=== PATIENT | female | born 1965 | race Caucasian/White ===

== ENCOUNTER → 2020-10-21 | Day surgery (SDC) | payer OTHER ==
[~2020-10-21] VITALS: Ht 157.5 cm; Wt 122.9 kg
[~2020-10-21] MED LIST: LISINOPRIL-HCT1 EAC1 PO; LORAZEPAM 0.50.5 MG PO; MELOXICAM15 MG PO
--- NOTE | ~2020-10-21 | O ---
[facility] [place] [address] OPERATIVE REPORT Name: GARETH KEITH Room #: REG [facility] Caren.#: [id number] Admission: 10/21/20 Attend Phys: Corky Segal Discharge: Date of : 67 Report #: [id number] THIS REPORT FOR: cc: Sergio Vasquez Robin L. FNP VanDenBerghe, Gregory R. MD ~ DOC #: [id number] Corky Carlos MD DATE OF SERVICE: 10/21/2020 PREOPERATIVE DIAGNOSES: Right shoulder pain, rotator cuff tear, long head biceps tendon tear, impingement syndrome. POSTOPERATIVE DIAGNOSES: Right shoulder rotator cuff tear, large; long head of the biceps tendon tear and subluxation; glenohumeral joint chondromalacia; subacromial bursitis; intraarticular synovitis. PROCEDURES PERFORMED: Right shoulder arthroscopy, rotator cuff repair, extensive debridement, biceps tenotomy. SURGEON: Corky Carlos MD QA SOFTWARE TESTER: Fe Odom PA-C ANESTHESIA: General with preoperative ultrasound-guided interscalene block. FLUIDS: 700 mL crystalloid. ESTIMATED BLOOD LOSS: 5 mL. DESCRIPTION OF PROCEDURE: After proper identification of the patient and the operative site in preoperative holding area, the operative site was signed by myself. Prophylactic antibiotics given. The patient elected to proceed with a block after discussing risks, benefits, alternatives and complications of anesthesia. After a satisfactory block, the patient was brought back to the operative suite. After induction of satisfactory general anesthesia, the patient was carefully positioned in the left lateral decubitus position. Hawthorne bag and axillary roll were utilized to support the torso. The right shoulder was sterilely prepped and draped in the usual manner and placed within 10 pounds of balanced arthroscopic suspension. Posterior portal was established, joint was inflated with an arthroscopic pump set at 40 mmHg. An anterior superior portal was created using a spinal needle for localization. Examination of the glenohumeral joint revealed extensive fraying and high-grade partial thickness tearing of the long head of the biceps tendon. Tendon grasping stitch was applied and that was released off the superior labrum. The overall tendon quality was quite poor and this would not hold a whipstitch in any significant [address] [address] OPERATIVE REPORT Name: GARETH KEITH Room #: REG [facility] M.Danielle.#: [id number] Admission: 10/21/20 Attend Phys: Corky Segal Discharge: Date of : 67 Report #: [id number] degree, making an attempted biceps tenodesis unpredictable and at a high rate of failure with her overall morbid obesity and body habitus. It was elected to treat this with a biceps tenotomy. This should not be a visible lesion and due to the underlying poor tendon quality, it was difficult to predict that this would even hold. The patient had some mild chondral thinning of the inferior humeral head and glenoid. Complex labral fraying and tearing was noted of the posterior labrum, which was carefully debrided. The remaining superior labrum demonstrated fraying as well and this was carefully debrided after the biceps tenotomy had been performed. The biceps had subluxated onto the upper border of the subscapularis and the lesser tuberosity was prepared with a sharp ring curette and motorized shaver. An additional anterior inferior portal was created and a FiberTape was passed in a simple manner using a Scorpion and this was secured with an Arthrex 4.75 mm SwiveLock anchor. It was noted that the patient had softer bone quality in this region, which typically has quite good bone quality, but the anchor was still amenable to primary fixation as discussed. The arthroscope was then introduced into the subacromial space where a very thickened bursa was encountered. It was resected for visualization purposes. There was no significant bony prominence of the coracoacromial arch and a bony decompression was not performed. The patient had a large mildly retracted rotator cuff tear. The cuff tissue itself was very thin in appearance, still amenable to repair, but retracted to the level of the mid aspect of the humeral head. Greater tuberosity was prepared with a sharp ring curette and motorized shaver and 2 double loaded Arthrex 4.75 mm SwiveLock anchors were inserted. A smaller punch was used for the entry point and the typical dilator was not used due to underlying softer bone quality. These anchors were inserted. They had reasonable purchase and felt stable with traction and then these sutures were passed in a horizontal mattress fashion using the Scorpion. These were then tied with locking sliding knots backed up with alternating half-hitches and a separate lateral row fixation was attempted using a 4.75 mm SwiveLock anchor, but even with the smaller punch, this did not have what felt to be secure fixation and so this was removed and a separate entrance site of the corner of the greater trochanter was utilized and a 6.25 SwiveLock anchor was inserted with 4 suture pairs. This appeared stable with longitudinal traction. The overall bone quality in this region was still significantly softer than I would anticipate for someone her age, but this double row construct was stable to probing. The suture edges were trimmed. The biceps had retracted into the area of the bicipital groove after the frayed and torn portion had been debrided. Subacromial space was thoroughly irrigated with normal saline. Additional surgical time was needed due to the complexity of the patient's tear as well as her obesity and body habitus, which increased the surgical time and difficulty. A qualified clinical trials assistant utilized throughout the entire procedure to aid in patient limb positioning, visualization with the arthroscope instrument and suture passage as well as closure and sling and dressing application. [facility] [address] [place] [address] OPERATIVE REPORT Name: ALIX SOLORIO MAYOGARETH HARDEN Room #: REG [facility].#: [id number] Admission: 10/21/20 Attend Phys: Corky Segal Discharge: Date of : 67 Report #: [id number] Corky Carlos MD GRV/JUNE By: 1232 1457 Corky Carlos MD /nt
[2020-10-21 10:30] VITALS: BP 144/67
--- NOTE | 2020-10-21 11:38 | EKG ---
[place] [address] [facility] [place] [address] ELECTROCARDIOGRAM REPORT Name: GARETH KEITH Room #: REG [facility].#: [id number] Admission: 10/21/20 Attend Phys: Corky Segal Discharge: Date of : 67 Report #: [id number] [facility] Test Date: 2020-10-21 Test Time: 11:07:17 Pat Name: GARETH HUBER Department: Room: Gender: F Bottom Turning Lathe Turner: LILLIE : 1965 Requested By: Corky Carlos Order Number: [id number] MD: Carmelo Guzman Measurements Intervals [place] Rate: 78 P: 34 CT: 164 QRS: 4 QRSD: 101 T: 4 QT: 388 QTc: 442 Interpretive Statements Sinus rhythm Abnormal R-wave progression, early transition Probable left ventricular hypertrophy Inferior infarct, old Baseline wander in lead(s) V3 No previous ECG available for comparison Electronically Signed On 10-21-2020 11:38:05 CDT by Carmelo Guzman [email or web address] <ELECTRONICALLY SIGNED> By: Carmelo Guzman MD, [facility] 10/21/20 1138 [id number] 1107 Carmelo Guzman MD, [facility] /EPI
[2020-10-21 13:42] VITALS: BP 144/67
== END | disposition home or self-care (01) ==
LOC: OR 09:23
PROVIDERS: ATTEND Orthopaedic Surgery Sports Medicine
DX: M25.561 Pain in right knee (principal); S46.011A Strain of muscle(s) and tendon(s) of the rotator cuff of right shoulder, initial encounter; S46.111A Strain of muscle, fascia and tendon of long head of biceps, right arm, initial encounter; M94.211 Chondromalacia, right shoulder; M75.51 Bursitis of right shoulder; M65.811 Other synovitis and tenosynovitis, right shoulder; M75.41 Impingement syndrome of right shoulder; I10 Essential (primary) hypertension; F41.9 Anxiety disorder, unspecified; Z90.710 Acquired absence of both cervix and uterus; Z98.890 Other specified postprocedural states; Z79.899 Other long term (current) drug therapy; Z20.822 Contact with and (suspected) exposure to COVID-19; X58.XXXA Exposure to other specified factors, initial encounter; Y93.89 Activity, other specified; Y92.89 Other specified places as the place of occurrence of the external cause; Y99.8 Other external cause status
CPT/HCPCS: 50010; 50101; 50172; 50386; 50417; 50935; 51320; 51847; 52001; 52313; 53610; 56527; 56530; 57103; 57419; 57420; 57489; 58575; 58576; 58577; 58589; 62110; 62900; 70005